=== PATIENT | male | born 1995 ===

== ENCOUNTER 2023-10-31 09:20 | Emergency (ER) | payer OTHER ==
[~2023-10-31] VITALS: Ht 175.3 cm; Wt 104.3 kg
[2023-10-31] MEDS ORDERED: Bactrim Ds Tab1 EACH PO (09:34)
== END 2023-10-31 09:39 | disposition home or self-care (01) ==
LOC: ER 09:20
DX: L02.416 Cutaneous abscess of left lower limb (principal); L02.415 Cutaneous abscess of right lower limb; Z88.0 Allergy status to penicillin
CPT/HCPCS: 99282